=== PATIENT | female | born 1970 | race Caucasian/White ===

== ENCOUNTER 2019-07-23 10:07 | Emergency (ER) | payer SELFPAY | END 2019-07-23 11:39 | disposition short-term general hospital (02) | LOC: ERS 10:07 | DX: J06.9 Acute upper respiratory infection, unspecified (principal); F17.200 Nicotine dependence, unspecified, uncomplicated | CPT/HCPCS: 99283 ==

== ENCOUNTER 2019-10-27 08:41 | Emergency (ER) | payer OTHER, SELFPAY ==
[2019-10-27] MEDS ORDERED: Acetaminophen 500 MG TAB ONE (09:18)
--- NOTE | 2019-10-27 09:44 | RAD ---
PORTABLE CHEST 1 VIEW: Date: 10/27/2019 Time: 0853 hours HISTORY: Dyspnea, sore throat. FINDINGS: The heart size is normal. The aorta is tortuous. The lungs are well expanded without focal areas of c onsolidation, pneumothoraces, or pleural effusions are seen. IMPRESSION: No acute process. POS: [facility]
[2019-10-27 18:36] LABS: SARS-CoV-2 MS2 Positive; SARS-CoV-2 N Gene Negative; SARS-CoV-2 S Gene Negative; SARS-CoV-2 orf1ab Negative
== END 2019-10-27 10:52 | disposition home or self-care (01) ==
LOC: ERS 08:41
DX: J02.9 Acute pharyngitis, unspecified (principal); Z20.828 Contact with and (suspected) exposure to other viral communicable diseases; F17.210 Nicotine dependence, cigarettes, uncomplicated
CPT/HCPCS: 71045; 87635; U0003